=== PATIENT | male | born 1935 | race Caucasian/White ===

== ENCOUNTER 2016-03-08 09:15 | Inpatient (IN) | payer MEDICARE ==
--- NOTE | 2016-03-08 08:28 | HP ---
DATE OF CLINIC: 03/03/2016 CHRISTIANO SANDRA : 1935 PLANNED PROCEDURE: Right Knee Unicompartmental Arthroplasty with Possible Total Knee Arthroplasty DATE OF PROCEDURE: March 08, 2016 SURGEON: Dr. Carlos Paredes PCP: Dr. Kameron Mcbride HISTORY OF PRESENT ILLNESS Christiano Sandra is an 80 year old male. * Medication list reviewed with patient allergy list reviewed with patient. 80-year-old male known to me in the past for a left knee medial unicompartmental arthroplasty over 6 years ago from which he has done well. Most recently has seen Kg for evaluation of chronic left knee pain and then with me for a consultation regarding this problem. It has been most limiting for him with noticing more of a "bow leg". He is also having more medial discomfort. This is primarily weight-bearing related, non-radicular, and he has minimal rest discomfort. He denies hip pain. He does get some intermittent swelling. He has had multi-level lumbar laminectomy at L2-3 and L4-5, per patient, done by Dr. Mendez. He continues to notice some weakness of right ankle dorsiflexion and some distal numbness. In addition, he has had some sensitivity of the right thigh anteriorly. He is interested in consideration of definitive management options. We discussed both operative and non-operative management and he has elected to proceed with surgery (UKA vs TKA)and presents today preoperatively. 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 He also has hypertension and a chronic peripheral neuropathy bilaterally. CURRENT MEDICATION * *Supplement Miscellaneous 1 once a day omega 3-fatty acids 1000mg, vitamin B-1 100mg, vitamin D3 2000mg, 0 days, 0 refills * Alpha-Lipoic Acid 100 MG Tablet 2 once a day 0 days, 0 refills * Aspirin 325 MG Tablet 1 once a day 0 days, 0 refills * B Complex Tablet 1 once a day 0 days, 0 refills * BuPROPion HCl ER (XL) 150 MG Tablet Extended Release 24 Hour 1 once a day 0 days, 0 refills * Citalopram Hydrobromide 40 MG Tablet 1 once a day 0 days, 0 refills * Cyanocobalamin 1000 MCG/ML Solution once a week 0 days, 0 refills * Excedrin Tension Headache 500-65 MG Tablet as needed 0 days, 0 refills * Gabapentin 300 MG Capsule as directed 2 caps 3 times a day, 0 days, 0 refills * LevOCARNitine 330 MG Tablet 1 once a day 0 days, 0 refills * Losartan Potassium 50 MG Tablet 1 once a day 0 days, 0 refills * Multi-Vitamin Tablet 1 once a day 0 days, 0 refills * Nitrostat 0.4 MG Tablet Sublingual as needed 0 days, 0 refills * Pantoprazole Sodium 40 MG Tablet Delayed Release 1 once a day 0 days, 0 refills PAST MEDICAL/SURGICAL HISTORY Reported: Medical: Arthritis, 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 Surgical / Procedural: Surgical / procedural history prostate skin Low Back sx 05/07 Hernia x 2 Gallbladder Prostate sx, replacement of a knee Left knee replaced 09/08/[address] Paredes, Cholecystectomy, Eye Surgery cataract Right eye, Hysterectomy, Hernia repair 2 times, Prostate Surgery seed implants, and Back Surgery laminectomy 2 times. Diagnoses: Thyroid disorder Sleep apnea. SOCIAL HISTORY Behavioral: Quit smoking 1953. Smoking status: Former smoker. 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 ALLERGIES * Ambien * Aspirin Reaction: stomachache * Cyclobenzaprine HCl * Diphenhydramine FAMILY HISTORY Heart disease mother and sibling Blood pressure mother and sibling Thyroid disease mother and sibling Stroke syndrome sibling REVIEW OF SYSTEMS Systemic: No fever and no recent weight change. Head: No head symptoms. Cardiovascular: No cardiovascular symptoms. Pulmonary: No pulmonary symptoms. Gastrointestinal: No gastrointestinal symptoms. Psychological: No psychological symptoms. Skin: No skin lesions and no rash. PHYSICAL FINDINGS * Vitals taken 03/03/2016 01:12 pm BP-Sitting L 141/92 mmHg 100 - 120/60 - 80 BP Cuff Size Regular Pulse Rate-Sitting 72 bpm 50 - 100 Respiration Rate 16 per min 18 - 26 Temp-Oral 98.1 F 96 - 101 Height 71.75 in 64 - 74 Weight 180 lbs 120 - 198 Body Mass Index 24.6 kg/m2 Body Surface Area 2.03 m2 Pain Level 1 Ears, Nose, Throat: * ENT: normal. Lungs: * Clear to auscultation. Cardiovascular: Heart Rate And Rhythm: * Normal. Abdomen: * Normal. Neurological: Motor: * Dominant Hand = Right Hand. Patient is a well-developed, well-nourished male in no acute distress, normal-appearing mood and affect. He has a stiff-legged gait. Right knee is in genu varum. This is correctable to near neutral. Right knee exam shows he is tender medial greater than lateral, fairly diffuse. Skin integrity is well-preserved, no wounds, rashes or lesions. Mild swelling, no gross effusion. Motion is 3-130 degrees. No pain with patellar manipulation. Ligamentous exam is intact for cruciates and collaterals. NT over the anteromedial proximal tibia. Calf is soft and NT. Distal light touch sensation has some mild stocking glove paraesthesias, but symmetric with the contralateral side. Motor function is grossly intact and symmetric. Pulses are palpable. Gentle rotation of the hip is non-irritable. Left knee shows a well-healed anterior incision, good joint play and alignment. No swelling or effusion. Motion is 0-135 degrees. TESTS Outside radiographs from 08/21/15 of the right knee show significant medial compartment narrowing with periarticular sclerosis and varus deformity. Lateral compartment is relatively well preserved. There is superior and inferior spurring at the patellofemoral articulation. Merchant views show some marginal degenerative changes, but comparable to the contralateral side. ASSESSMENT DJD, right knee, involving primarily the medial compartment with less significant involvement of the patellofemoral joint. Over 6 years post left medial unicompartmental arthroplasty, clinically and radiographically doing well. PREVIOUS TESTS * Test: CBC WITH DIFF Report Date: 02/25/2016 WBC 6.3 10*3/mL MCV 96.5 fL High RBC 4.29 10*6/uL Low NEUTROPHILS 67.5 % MCH 32.2 pg High MCHC 33.3 g/dL RDW 14.6 % High PLATELET COUNT 196 10*3/mL IMM NEUT % 0.5 % IMM NEUT # 0.0 10*3/mL MONOCYTES 10.7 % BASOPHIL 0.3 % EOSINOPHIL 3.5 % High HCT 41.4 % HGB 13.8 g/L Low LYMPHOCYTE 17.5 % ANC 4.3 10*3/mL * Test: URINALYSIS WITH MICROSCOPIC Report Date: 02/25/2016 EPITHELIAL CELL 0 WBC NEG GLUCOSE NEGATIVE BACTERIA FEW PH,URINE 5.0 SPEC. GRAVITY 1.025 KETONE NEGATIVE NITRITE NEGATIVE RBC 0-1 BLOOD TRACE BILIRUBIN NEGATIVE APPEARANCE CLEAR PROTEIN 2+ COLOR YELLOW LEUK ESTERASE NEGATIVE UROBILINOGEN NORMAL * Test: PROTHROMBIN TIME Report Date: 02/25/2016 PROTIME 9.9 s INR 0.94 * Test: PARTIAL THROMBOPLASTIN TIME Report Date: 02/25/2016 APTT 26.0 s * Test: COMPREHENSIVE METABOLIC PANEL Report Date: 02/25/2016 ALT/SGPT 26 U/L ALBUMIN 3.8 g/dL ALB/GLOB RATIO 1.2 BUN 27 mg/dL High BUN/CREAT RATIO 18 CALCIUM 9.0 mg/dL GLUCOSE 121 mg/dL High CREATININE 1.5 mg/dL High SODIUM 139 meq/L POTASSIUM 4.5 meq/L CHLORIDE 103 meq/L CARBON DIOXIDE 32 meq/L High ANION GAP 9 meq/L TOT PROTEIN 7.0 g/dL GLOBULIN 3.2 g/dL BILI,TOTAL 0.4 mg/dL AST/SGOT 29 U/L ALK PHOSPHATASE 90 U/L GFR 45 Low * Test: MRSA SCREEN Report Date: 02/26/2016 MRSA SCREEN NEGATIVE * Test: MSSA SCREEN Report Date: 02/26/2016 MSSA SCREEN POSITIVE FOR STAPHYLOCOCCUS AUREUS Abnormal THERAPY * Patient fall risk screen positive. * Patient eligible for fall risk assessment. * Patient received fall risk assessment. PLAN * OTHER OxyCODONE HCl 5 MG TABS, 1or 2 tablets every 4 to 6 hours as needed-TO BE USED FOR AFTER SURGERY, 5 days, 0 refills Mupirocin 2 % OINT, apply into each nostril two times a day (morning & night) for 5 days prior to surgery date. NEED TO START ON Mar 03, 2016, 5 days, 0 refills * Knee replacement -partial, on the right with possible total knee arthroplasty Discussed with patient in detail the limitations, expectations as well as risks and possible complications of surgery including, but not limited to wound problems or infection, neurovascular injury, continued knee pain or dysfunction, including the possibility of prosthetic wear or failure over time that may require additional operative or nonoperative treatment. Patient also realizes the perioperative risks including risks associated with anesthesia and would like to proceed. A full PAR conference was held, questions and concerns addressed and informed consent was obtained. Patient will be sent from my office for completion of the preoperative workup. Patient will enteric coated aspirin postoperatively for DVT prophylaxis as per risk stratification protocol.use Patient would like to perform their postop PT at [facility] if possible with transition back to [facility] when independent with total knee arthroplasty protocol. He does live alone. CARE TEAM Ashit Mckenzie, MD Cardiovascular Disease Kameron Mcbride MD [facility]/sg
[~2016-03-08 09:15] MED LIST: BUPIVACAINE 0.25% (MDV) 20 ML in SODIUM CHLORIDE 0.9% FLUSH 20 ML IF PRN; BUPIVACAINE 0.25% (MDV) 24 ML, MORPHINE SULFATE 8 MG, EPINEPHRINE 0.3 MG in SODIUM CHLO... IF PRN; CEFAZOLIN SODIUM 2 GRAM PREMIX 100 ML IV PRN; CELECOXIB 200 MG CAPSULE PO ONE; CLONIDINE HCL 0.1 MG/24 HR (7 DAY PATCH) TD SCH; FAMOTIDINE 20 MG TABLET PO ONE; GABAPENTIN 600 MG TABLET PO ONE; ONDANSETRON 4 MG/2ML 2 ML VIAL IV ONE; OXYCODONE HCL 10 MG TAB.SR PO ONE; POLYMYXIN B SULFATE 500,000 UNITS, BACITRACIN 25,000 UNITS in SODIUM CHLORIDE 3 L IRRIG... IR PRN; TRAMADOL HCL 50 MG TABLET PO ONE; TRANEXAMIC ACID 1,000 MG in SODIUM CHLORIDE 0.9% 100 ML IV PRN
[2016-03-08] MEDS ORDERED: IV START KIT ONE (09:21)
[2016-03-08] MEDS ORDERED: LACTATED RINGERS 1,000 ML ONE (09:21)
[2016-03-08] MEDS ORDERED: FENTANYL 100 MCG/2 ML VIAL ONE (10:32)
[2016-03-08] MEDS ORDERED: MIDAZOLAM HCL 5 MG/5 ML VIAL ONE ×4 (10:32→12:43)
[2016-03-08] MEDS ORDERED: ROPIVACAINE 0.5% 30 ML VIAL ONE (10:33)
[2016-03-08] MEDS ORDERED: NERVE BLOCK PROCEDURAL TRAY 1 EACH ONE (10:33)
[2016-03-08] MEDS ORDERED: ONDANSETRON 4 MG/2ML 2 ML VIAL ONE (10:38)
[2016-03-08] MEDS ORDERED: FAMOTIDINE 20 MG TABLET ONE (10:38)
[2016-03-08] MEDS ORDERED: OXYCODONE HCL 10 MG TAB.SR PO ONE (10:38)
[2016-03-08] MEDS ORDERED: TRAMADOL HCL 50 MG TABLET ONE (10:38)
[2016-03-08] MEDS ORDERED: CELECOXIB 200 MG CAPSULE ONE (10:39)
[2016-03-08] MEDS ORDERED: CLONIDINE HCL 0.1 MG/24 HR (7 DAY PATCH) TD ONE (10:39)
[2016-03-08] MEDS ORDERED: GABAPENTIN 600 MG TABLET ONE (10:39)
[2016-03-08] MEDS ORDERED: METHYLENE BLUE 1% 1ML VIAL ONE (11:00)
[2016-03-08] MEDS ORDERED: ATROPINE SULFATE 0.4 MG/1 ML VIAL IV PRN (11:47)
[2016-03-08] MEDS ORDERED: LABETALOL HCL 5 MG/ML 20ML VIAL IV PRN (11:47)
[2016-03-08] MEDS ORDERED: ON-Q PUMP/ROPIVACAINE 0.2% 400 ML in PREMIX BAG 1 EACH NB PRN (11:47)
[2016-03-08] MEDS ORDERED: PROMETHAZINE HCL 25 MG/ML VIAL IM PRN (11:47)
[2016-03-08] MEDS ORDERED: NALOXONE HCL 0.4 MG/ML VIAL IV PRN (11:47)
[2016-03-08] MEDS ORDERED: ONDANSETRON 4 MG/2ML 2 ML VIAL IV PRN ×2 (11:47→14:58)
[2016-03-08] MEDS ORDERED: MORPHINE SULFATE 4 MG/ML SYRINGE IV PRN (11:47)
[2016-03-08] MEDS ORDERED: MEPERIDINE 25 MG/ML SYRINGE IV PRN (11:47)
[2016-03-08] MEDS ORDERED: LACTATED RINGERS 1,000 ML IV SCH (12:00)
[2016-03-08] MEDS ORDERED: BUPIVACAINE 0.75% SPINAL AMPUL 2 ML ONE (13:18)
[2016-03-08] MEDS ORDERED: SPINAL PROCEDURAL TRAY 1 EACH ONE (13:18)
[2016-03-08] MEDS ORDERED: MORPHINE SULFATE 10 MG/ML SYRINGE ONE (13:18)
[2016-03-08] MEDS ORDERED: ON-Q PUMP/ROPIVACAINE 0.2% 450 ML ONE (13:49)
--- NOTE | 2016-03-08 14:14 | PCMBPN ---
Brief Post Op Note: Date of Procedure: 03/08/16 Preoperative Diagnosis: DJD right knee Postoperative Diagnosis: 1. [Same] Procedure: right UKA Surgeon: Carlos Paredes MD Assist: Tiara (АННА) Anesthesia: spinal/add block (Maninder) Condition: stable to PAR Complications: none IV Fluids: 2000 mLs of LR Urine Output: 125 mLs Estimated Blood Loss: 50 mLs Tourniquet Time: ~70 minutes Specimens: [N/A] Implants:ZUK Drains: none
[2016-03-08 14:29] VITALS: BMI 23.9
[2016-03-08] MEDS ORDERED: KETOROLAC TROMETHAMINE 30 MG/ML 1 ML VIAL IV PRN (14:58)
[2016-03-08] MEDS ORDERED: HYDROMORPHONE HCL 0.5 MG/0.5 ML SYRINGE IV PRN (14:58)
[2016-03-08] MEDS ORDERED: CEFAZOLIN SODIUM 1 GRAM PREMIX 1 G in Premix (D5W) 50 ml 1 EACH IV SCH (14:58)
[2016-03-08] MEDS ORDERED: CALCIUM CARBONATE 500 MG TAB.CHEW PO PRN (14:58)
--- NOTE | 2016-03-08 15:02 | RAD ---
Exam: Two-view right knee COMPARISON: 10/29/2010 INDICATION: Postop knee. Findings: AP and crosstable lateral views of the right knee were obtained. There has been unicompartment arthroplasty within the medial compartment of the right knee. Alignment has improved. No pericomponent fracture is identified. Intra-articular and subcutaneous gas is noted as expected. Vascular calcifications are noted. IMPRESSION: Expected postoperative appearance following unicompartmental arthroplasty in the medial compartment of the right knee.
[2016-03-08] MEDS: D5 1/2NS with 20 mEq KCL 1,000 ML IV SCH ×2 (15:50→19:49)
[2016-03-08] MEDS: ACETAMINOPHEN 500 MG TABLET PO SCH ×2 (15:50→20:10)
[2016-03-08] MEDS ORDERED: NITROGLYCERIN 0.4 MG/TAB.SUBL BOT SL PRN (19:33)
[2016-03-08] MEDS ORDERED: PUMP TUBING ONE (19:37)
[2016-03-08] MEDS: CEFAZOLIN SODIUM 1 GRAM PREMIX 1 G in Premix (D5W) 50 ml 1 EACH IV SCH (19:49)
[2016-03-08] MEDS: GABAPENTIN 300 MG CAPSULE PO SCH (20:11)
[2016-03-08] MEDS: DOCUSATE SODIUM 100 MG CAPSULE PO SCH (20:11)
[2016-03-08] MEDS: ASCORBIC ACID 500 MG TABLET PO SCH (20:11)
--- NOTE | 2016-03-08 20:51 | CONS ---
CHERYL BACK [id number] HOSPITALIST CONSULATION DATE OF ADMISSION: March 08, 2016 DATE OF CONSULTATION: March 08, 2016 PHYSICIAN REQUESTING CONSULTATION: Carlos Paredes M.D. REASON FOR CONSULTATION: Assistance in the perioperative management of the patient's medical problems. These medical problems include coronary artery disease with a stent in the left anterior descending artery placed in 2011 without angina involving the [place] vessels, chronic essential hypertension, chronic depression, obstructive sleep apnea on CPAP therapy, history of mitochondrial myopathy with generalized weakness, gastroesophageal reflux disease, chronic stage 3 kidney disease with a baseline creatinine around 1.5. PROCEDURES PERFORMED DURING THE HOSPITALIZATION: A right unipolar knee arthroplasty performed by Dr. Paredes earlier today under spinal anesthesia without immediate perioperative complications. SUMMARY OF ADMISSION AND HOSPITAL COURSE: The patient is an 80-year-old male with medical problems as listed above who was admitted for an elective right unipolar knee arthroplasty as mentioned above. PREOPERATIVE REVIEW OF SYSTEMS: Is negative for any recent problems with fevers or chills. He denies any recent upper respiratory symptoms, cough, chest pain, shortness of breath, palpitations, edema, nausea, vomiting, constipation or abdominal pain. He denies any headache, fainting, blackouts or seizures. No urinary complaints. No recent falls. PAST MEDICAL HISTORY: 1. Negative for any recent hospitalizations. 2. He has a history of coronary artery disease followed by Dr. Mckenzie. He has no angina symptoms. He had a stent placed in 2011 after a small myocardial infarction. It is unclear what preoperative cardiac evaluation the patient had. Those records are not available for my review. 3. He has a history of chronic essential hypertension, stable on medications. 4. He has a history of obstructive sleep apnea on CPAP therapy. Unfortunately he did not bring his CPAP machine in with him today. 5. He has a history of peripheral neuropathy followed by Dr. Jack Eric as well as a mitochondrial myopathy also followed by Dr. Eric. 6. He has had some gastroesophageal reflux disease, stable on medications. 7. Chronic depression, stable on medications. 8. He has a remote history of prostate cancer believed to be in remission. PAST SURGICAL HISTORY: Significant for: 1. Lumbar laminectomy at multiple levels. The last surgery was in March,. He is followed by Dr. Mendez for his back problems. 2. He has had prior back surgeries as well. 3. He has had a stent placed in the left anterior descending artery in [address] Mckenzie. 4. He has had a prior cholecystectomy. 5. Two previous hernia surgeries. 6. Prostatectomy. 7. He had a left knee replacement performed by Dr. Paredes here in August of 2009 without complications. ALLERGIES: He has several allergies documented in the medical record includin. CHLORAMPHENICOL. 2. CLARITHROMYCIN. 3. CLINDAMYCIN. 4. ERYTHROMYCIN. 5. TETRACYCLINE. 6. Most of these medications are contraindicated with his myopathy. CURRENT MEDICATIONS: Consist of: 1. Nitroglycerin 0.4 mg sublingual every five minutes as needed for chest pain. 2. Vitamin D3 2000 units orally daily. 3. Vitamin B complex one pill twice daily. 4. Thiamine supplement 100 mg daily. 5. Protonix 40 mg daily. 6. Carlton 3 fatty acids 1000 mg daily. 7. Multivitamin once daily. 8. Levocarnitine 330 mg daily. 9. Neurontin 600 mg twice daily. 10. Vitamin B12 1000 mcg subcutaneous every week. 11. Creatine supplement 2500 mg daily. 12. Celexa 40 mg daily. 13. Wellbutrin SR 150 mg daily. 14. Enteric coated aspirin 325 mg daily. 15. Amlodipine 5 mg daily. 16. Alpha lipoic acid 100 mg twice daily. 17. Excedrin tension headache tablets daily as needed for headaches. FAMILY HISTORY: Significant for a mother who of a cerebral hemorrhage. His father of complications of emphysema. SOCIAL HISTORY: He is currently and lives alone. He quit smoking in 1954 after smoking only one year. He does not drink alcohol and denies drug use. He has two sons and one named Rigoberto lives locally. He lives in [facility]. 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 His primary care provider is Dr. Kameron Mcbride. PHYSICAL EXAMINATION: VITAL SIGNS: His vital signs showed pulse 61, blood pressure 131/79, respirations 20, oxygen saturations are 99% on two liters but drop down into the 80s when sleeping. Body mass index is 23.9. Weight is 80 kilograms. GENERAL: This is a well developed, well nourished male in no acute distress. HEENT: Is unremarkable. CHEST: Clear to auscultation bilaterally. HEART: Regular rate and rhythm without a murmur. ABDOMEN: Soft, nontender, nondistended with positive bowel sounds. EXTREMITIES: Showed no peripheral edema. He has a surgical dressing over the right knee. NEUROLOGIC: Exam is nonfocal. PREOPERATIVE LABORATORY STUDIES: Included a CBC done on February 25, 2016 showing a white count of 6.3, hemoglobin of 13.8, and a platelet count of 196,000. Coagulation profile was normal. Chemistry profile showed a sodium 139, potassium 4.5, carbon dioxide 32, creatinine 1.5, glucose 121, normal liver functions on February 18, 2016. Urinalysis performed at that was fairly unremarkable. DIAGNOSTIC IMAGING: He had a preoperative chest x-ray in January showing no active intrathoracic disease. ELECTROCARDIOGRAM: I do not have any preoperative electrocardiograms available for review. ASSESSMENT/PLAN: 1. The patient is status post right unipolar knee arthroplasty. We will defer to orthopedic service for perioperative management of this problem. He will be receiving aspirin for venous thrombosis prophylaxis along with mechanical measures. 2. Patient has a history of coronary artery disease which appears to be stable. We will try to get records from [facility] in the morning. 3. He has chronic essential hypertension controlled with medications. We will write parameters for his Norvasc. Interestingly, he is not on a beta andre therapy but just takes Norvasc for hypertension. He is also not on any statin therapy. We will defer to his outpatient providers for management of his lipids. 4. He has a history of chronic depression stable on Celexa and Wellbutrin. We will continue these. 5. He has a history of obstructive sleep apnea managed with CPAP. Unfortunately, he did not bring his machine in. I am going to try to get his family or friends or somebody to bring it in tomorrow. In the meantime he will just get oxygen supplemental therapy. 6. He has a history of mitochondrial myopathy treated with supplements. He will have to provide these if he wants to continue those in the hospital. I have written orders that he can use his own medications if desired. 7. He has some chronic gastroesophageal reflux disease and will continue with proton pump inhibitor therapy in the form of Protonix. 8. He has elevated creatinine presumably due to chronic stage 3 kidney disease, but I do not have any recent prior laboratory results from his primary care provider's office. 9. The hospitalist service will follow the patient in the perioperative period. At discharge he will return to the care of his primary care provider, Dr. Mcbride. 10. He plans to go to a [facility] facility for rehabilitation which seems appropriate given his lack of social support at home. 11. Further treatment and recommendations will depend on his hospital course. cc: Carlos Paredes M.D. Kameron Mcbride M.D.
[2016-03-08] MEDS ORDERED: ALPHA LIPOIC ACID 100 MG PO SCH (21:00)
[2016-03-09] MEDS: D5 1/2NS with 20 mEq KCL 1,000 ML IV SCH ×2 (02:15→08:39)
[2016-03-09] MEDS: ACETAMINOPHEN 500 MG TABLET PO SCH ×5 (03:08→21:00)
[2016-03-09] MEDS: CEFAZOLIN SODIUM 1 GRAM PREMIX 1 G in Premix (D5W) 50 ml 1 EACH IV SCH (03:40)
[2016-03-09 05:59] LABS: HEMATOCRIT 34.7 % (32.0-52.0); HEMOGLOBIN 11.4 gm/l (14.0-18.0); MEAN CORPUSCULAR HEMOGLOBIN 32.2 pg (27.0-31.0); MEAN CORPUSCULAR HGB CONC 32.9 g/dl (33.0-37.0); RED CELL DISTRIBUTION WIDTH 14.6 % (11.5-14.5)
--- NOTE | 2016-03-09 08:41 | PDOC43 ---
- Subjective Findings: Pt seen this morning up a eating the rest of his breakfast. He reports little pain and is ready to start PT. Subjective: Reports Flatus, Reports Pain Tolerable, Denies Chest Pain, Denies Shortness of Breath, Denies Nausea, Denies Vomiting, Denies Fever - Objective Vital Signs Temperature 97.8 F 03/09/16 07:45 Pulse Rate 60 03/09/16 07:51 Respiratory Rate 16 03/09/16 07:45 Blood Pressure 120/71 03/09/16 07:45 O2 Saturation by Pulse Oximetry 85 03/09/16 07:51 Oxygen Delivery Method Room Air Oxygen Flow Rate 0 Laboratory 03/09/16 05:30 03/09/16 05:30 03/09/16 05:30 RBC 3.54 L MCV 98.0 H MCH 32.2 H MCHC 32.9 L RDW 14.6 H Anion Gap 6 L Estimated GFR 49 L Calcium 8.0 L Active Medication Orders Category Date Time Status Acetaminophen [Tylenol] Med 03/08/16 14:58 Active 1,000 mg PO Q6H Amlodipine Besylate [Norvasc] Med 03/09/16 09:00 Active 5 mg PO DAILY Ascorbic Acid [Vitamin C] Med 03/08/16 21:00 Active 500 mg PO BID Aspirin (Enteric Coated) [Ecotrin] Med 03/09/16 09:00 Active 325 mg PO DAILY Aspirin (Enteric Coated) [Ecotrin] Med 03/09/16 09:00 Active 325 mg PO DAILY Bisacodyl [Dulcolax] Med 03/11/16 14:16 Active 10 mg [place] DAILY PRN Bupropion HCl [Wellbutrin Sr] Med 03/09/16 09:00 Active 150 mg PO DAILY Calcium Carbonate [Tums] Med 03/08/16 14:58 Active 1,000 - 2,000 mg PO Q2H PRN Citalopram Hydrobromide [Celexa] Med 03/09/16 09:00 Active 40 mg PO DAILY D5 1/2NS with 20 mEq KCL [D51/2NS with 20 mEq KCL] 1, Med 03/08/16 14:58 Active 000 ml IV 125 mls/hr Docusate Sodium [Colace] Med 03/08/16 21:00 Active 100 mg PO BID Gabapentin [Neurontin] Med 03/08/16 21:00 Active 600 mg PO BID Hydromorphone HCl [Dilaudid] Med 03/08/16 14:58 Active 0.5 mg IV Q1H PRN Ketorolac Tromethamine [Toradol] Med 03/08/16 14:58 Active 30 mg IV Q6H PRN Magnesium Hydroxide [Milk of Magnesia] Med 03/09/16 14:16 Active 30 ml PO DAILY PRN Multivitamins [One-A-Day] Med 03/09/16 09:00 Active 1 tab PO DAILY Nitroglycerin [Nitrostat] Med 03/08/16 19:33 Active 0.4 mg SL Q5M PRN Ondansetron 4 mg/2ml Vial [Zofran] Med 03/08/16 14:58 Active 4 - 6 mg IV Q6H PRN Oxycodone HCl [Roxicodone] Med 03/08/16 14:58 Active 5 - 10 mg PO Q4H PRN Pantoprazole Sodium [Protonix] Med 03/09/16 09:00 Active 40 mg PO DAILY Remove Patch Med 03/09/16 10:00 Once 1 each TD X1 ONE Sodium Chloride 0.9% Flush [Normal Saline 10ml Flush] Med 03/08/16 14:58 Active 10 - 50 ml IV PRN PRN Sodium Chloride 0.9% Flush [Normal Saline 10ml Flush] Med 03/09/16 01:00 Active 10 ml IV Q8HR Intake and Output 03/07/16 03/08/16 03/09/16 23:59 23:59 23:59 Intake Total 2500 500 Output Total 675 325 Balance 1825 175 General: Afebrile HEENT: Atraumatic Lungs: Normal Air Movement Abdomen: Soft, Non-Distended Skin: Normal Color Neurological: Alert, Oriented x 4 Psych/Mental Status: Normal Affect - Right Lower Extremity Motor: Extensor Hallucis Longus: 5/5, Tibialis Anterior: 5/5, Gastrocnemius: 5/5 , Peroneals: 5/5, Quadriceps: 3/5 Gross Sensation to Light Touch: Present: Deep Peroneal Nerve Motion: Calf soft NT Knee Rom 0-80 Ind SLR - Problems (1) Status post right unicompartmental knee replacement Status: Acute Assessment/Plan: Pod#1 1. Physical Therapy:Mobilize with PT/OT, Encouraged bed exercise 2. Pain Control: Per protocol and nerve cath. Nerve cath turned down to 6ml/hr 3. DVT Prophylaxis: ASA, foot pumps and mobility 4. Disposition:Doing well 5. Medical Issues:Management per hospitalist. Appreciatte the care and consult. Hypoxemia secondary to meds and lack of CPAP during the night. He will need this for D/C to SNF Possible D/C to SNF today if meets criteria
[2016-03-09] MEDS ORDERED: CREATINE PO SCH (09:00)
[2016-03-09] MEDS ORDERED: GABAPENTIN 300 MG CAPSULE PO SCH (09:00)
[2016-03-09] MEDS ORDERED: REMOVE PATCH 1 EACH UNIT TD SCH (09:00)
[2016-03-09] MEDS ORDERED: ASPIRIN (ENTERIC COATED) 325 MG TABLET.EC PO SCH (09:00)
[2016-03-09] MEDS: PANTOPRAZOLE 40 MG TABLET DR PO SCH (09:19)
[2016-03-09] MEDS: ASPIRIN (ENTERIC COATED) 325 MG TABLET.EC PO SCH (09:19)
[2016-03-09] MEDS: CITALOPRAM HYDROBROMIDE 20 MG TABLET PO SCH (09:19)
[2016-03-09] MEDS: MULTIVITAMINS 1 TAB TABLET PO SCH (09:19)
[2016-03-09] MEDS: AMLODIPINE BESYLATE 5 MG TABLET PO SCH (09:21)
[2016-03-09] MEDS: ASCORBIC ACID 500 MG TABLET PO SCH ×2 (09:22→21:00)
[2016-03-09] MEDS: BUPROPION HCL 150 MG SR TABLET PO SCH (09:22)
[2016-03-09] MEDS: DOCUSATE SODIUM 100 MG CAPSULE PO SCH ×2 (09:24→21:00)
[2016-03-09] MEDS ORDERED: REMOVE PATCH 1 EACH UNIT TD ONE (10:00)
[2016-03-09] MEDS: GABAPENTIN 300 MG CAPSULE PO SCH (10:11)
--- NOTE | 2016-03-09 10:52 | PDOC43 ---
- Subjective Chief Complaint: Right unipolar arthroplasty Patient awake and alert without complaints. There is no knee pain, he has been out of bed with assistance. Denies lightheadedness, chest pain, shortness of breath. He may have someone be able to pick-up his CPAP this afternoon. Subjective: Reports Pain Tolerable, Reports Tolerating Diet Well, Reports Adequate Oral Intake, Reports Urinating Without Difficulty, Denies Bowel Movement, Denies Shortness of Breath, Denies Cough, Denies Chest Pain, Denies Abdominal Pain, Denies Nausea, Denies Vomiting - Objective Vital Signs Temperature 97.8 F 03/09/16 07:45 Pulse Rate 60 03/09/16 07:51 Respiratory Rate 16 03/09/16 07:45 Blood Pressure 120/71 03/09/16 07:45 O2 Saturation by Pulse Oximetry 85 03/09/16 07:51 Oxygen Delivery Method Room Air Oxygen Flow Rate 0 Intake and Output 03/07/16 03/08/16 03/09/16 23:59 23:59 23:59 Intake Total 2500 500 Output Total 675 325 Balance 1825 175 General: Alert, Oriented x3, Cooperative, No Acute Distress HEENT: Atraumatic, PERRLA, EOMI, Mucous membr. moist/pink Lungs: Clear to Auscultation Bilaterally, Normal Air Movement (no crackle or wheeae) Cardiovascular: Regular Rate and Rhythm, Normal S1, Normal S2, No Other Abdomen: Soft, Non-Distended, No Rigid, No Rebounding Extremities: No Cyanosis, No Edema, No Tenderness Peripheral Pulses: Radial (L): 2+, Radial (R): 2+ Neurological: Normal Speech Psych/Mental Status: Normal Mood Laboratory 03/09/16 05:30 03/09/16 05:30 03/09/16 05:30 RBC 3.54 L MCV 98.0 H MCH 32.2 H MCHC 32.9 L RDW 14.6 H Anion Gap 6 L Estimated GFR 49 L Calcium 8.0 L Current Medications: Current meds reviewed in EMR. - Problems: Assessment/Plan (1) Status post right unicompartmental knee replacement Status: Acute Assessment/Plan: Management per orthopedic recommendations (2) CAD (coronary artery disease), [place] coronary artery Qualifiers: [place] vs. transplanted heart: [place] heart Associated angina: without angina Qualifier Code: (I25.10) Atherosclerotic heart disease of [place] coronary artery without angina pectoris Status: Chronic Assessment/Plan: stable (3) Hypertension Qualifiers: Hypertension type: essential hypertension Qualifier Code: (I10) Essential (primary) hypertension Status: Chronic Assessment/Plan: Stable, continue home medications (4) Depression Qualifiers: Depression Type: dysthymia Qualifier Code: (F34.1) Dysthymic disorder Status: Chronic Assessment/Plan: Stable, continue home medications (5) KARMEN on CPAP Status: Chronic Assessment/Plan: Patient currently without his CPAP and required oxygen use overnight. 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 Continue supplements to prevent exacerbation (7) GERD without esophagitis Status: Chronic Assessment/Plan: Continue home medications (8) CKD (chronic kidney disease), stage III Status: Chronic Assessment/Plan: Presumed but prior history unavailable, present on pre-op labs. Stable
[2016-03-09] MEDS ORDERED: MAGNESIUM HYDROXIDE 30 ML UDCUP PO PRN (14:16)
[2016-03-09] MEDS: OXYCODONE HCL 5 MG TABLET PO PRN (18:03)
[2016-03-09] MEDS: GABAPENTIN 600 MG TABLET PO SCH (21:00)
[2016-03-10] MEDS: ACETAMINOPHEN 500 MG TABLET PO SCH ×2 (02:40→08:33)
[2016-03-10] MEDS: OXYCODONE HCL 5 MG TABLET PO PRN ×2 (02:40→08:41)
[2016-03-10 06:21] LABS: HEMOGLOBIN 11.7 gm/l (14.0-18.0)
[2016-03-10] MEDS: CITALOPRAM HYDROBROMIDE 20 MG TABLET PO SCH (08:30)
[2016-03-10] MEDS: BUPROPION HCL 150 MG SR TABLET PO SCH (08:32)
[2016-03-10] MEDS: AMLODIPINE BESYLATE 5 MG TABLET PO SCH (08:32)
[2016-03-10] MEDS: DOCUSATE SODIUM 100 MG CAPSULE PO SCH (08:33)
[2016-03-10] MEDS: ASPIRIN (ENTERIC COATED) 325 MG TABLET.EC PO SCH (08:33)
[2016-03-10] MEDS: PANTOPRAZOLE 40 MG TABLET DR PO SCH (08:33)
[2016-03-10] MEDS: GABAPENTIN 600 MG TABLET PO SCH (08:33)
[2016-03-10] MEDS: MULTIVITAMINS 1 TAB TABLET PO SCH (08:34)
[2016-03-10] MEDS: ASCORBIC ACID 500 MG TABLET PO SCH (08:34)
--- NOTE | 2016-03-10 09:06 | PDOC43 ---
- Subjective Findings: Ortho POD 2 R UKA Patient awake, A and O times 4 this am and in good spirits. No present c/o. Denies CP/SOB/NV. Taking a regular diet and positive flatus. Good progress with ambulatory PT POD 1. Pain is well controlled, presently none. Aware of discharge planning for SNF. Wants to get his own ride arranged. - Objective Vital Signs Temperature 98.4 F 03/10/16 07:12 Pulse Rate 73 03/10/16 07:12 Respiratory Rate 17 03/10/16 07:12 Blood Pressure 137/78 03/10/16 07:12 O2 Saturation by Pulse Oximetry 93 03/10/16 07:26 Oxygen Delivery Method Nasal Cannula Oxygen Flow Rate 2 Laboratory 03/10/16 05:45 03/09/16 05:30 Active Medication Orders Category Date Time Status Acetaminophen [Tylenol] Med 03/08/16 14:58 Active 1,000 mg PO Q6H Amlodipine Besylate [Norvasc] Med 03/09/16 09:00 Active 5 mg PO DAILY Ascorbic Acid [Vitamin C] Med 03/08/16 21:00 Active 500 mg PO BID Aspirin (Enteric Coated) [Ecotrin] Med 03/09/16 09:00 Active 325 mg PO DAILY Bisacodyl [Dulcolax] Med 03/11/16 14:16 Active 10 mg IN DAILY PRN Bupropion HCl [Wellbutrin Sr] Med 03/09/16 09:00 Active 150 mg PO DAILY Calcium Carbonate [Tums] Med 03/08/16 14:58 Active 1,000 - 2,000 mg PO Q2H PRN Citalopram Hydrobromide [Celexa] Med 03/09/16 09:00 Active 40 mg PO DAILY Docusate Sodium [Colace] Med 03/08/16 21:00 Active 100 mg PO BID Gabapentin [Neurontin] Med 03/09/16 21:00 Active 600 mg PO BID Hydromorphone HCl [Dilaudid] Med 03/08/16 14:58 Active 0.5 mg IV Q1H PRN Magnesium Hydroxide [Milk of Magnesia] Med 03/09/16 14:16 Active 30 ml PO DAILY PRN Multivitamins [One-A-Day] Med 03/09/16 09:00 Active 1 tab PO DAILY Nitroglycerin [Nitrostat] Med 03/08/16 19:33 Active 0.4 mg SL Q5M PRN Ondansetron 4 mg/2ml Vial [Zofran] Med 03/08/16 14:58 Active 4 - 6 mg IV Q6H PRN Oxycodone HCl [Roxicodone] Med 03/08/16 14:58 Active 5 - 10 mg PO Q4H PRN Pantoprazole Sodium [Protonix] Med 03/09/16 09:00 Active 40 mg PO DAILY Sodium Chloride 0.9% Flush [Normal Saline 10ml Flush] Med 03/08/16 14:58 Active 10 - 50 ml IV PRN PRN Sodium Chloride 0.9% Flush [Normal Saline 10ml Flush] Med 03/09/16 01:00 Active 10 ml IV Q8HR Intake and Output 03/08/16 03/09/16 03/10/16 23:59 23:59 23:59 Intake Total 2500 1400 900 Output Total 163 446 8783 Balance 1825 1025 -400 Neurological: No Normal Gait (ambulating with a walker post R UKA) Peripheral Pulses: Right Posterior Tibialis: 1+, Right Dorsalis Pedis: 1+ - Left Lower Extremity Incision: Well Approximated (with a sub Q closure, skin glue and mesh. Thigh and calf are SNT.), No Dressing Saturated, No Shadow Drainage, No Drainage, No Erythema, No Rash Motor: Extensor Hallucis Longus: 3/5, Tibialis Anterior: 3/5, Gastrocnemius: 4/5 , Peroneals: 3/5, Quadriceps: 4/5 Gross Sensation to Light Touch: Present: Deep Peroneal Nerve, Superficial Peroneal Nerve, Medial Plantar Nerve, Lateral Plantar Nerve, Sural Nerve, Saphenous Nerve Motion: Knee flexion: AROM 0-50 with passive improvement, AA for SLR. Ankle: chronic weakness with DF, otherwise WNL. - Problems (1) Status post right unicompartmental knee replacement Status: Acute Assessment/Plan: Ortho POD 2 R UKA 1. Continue: Physical Therapy:Mobilize with PT/OT, Encouraged bed exercise 2. Continue: Pain Control: Per protocol and nerve cath. Nerve cath turned down to 6ml/hr 3. Continue: DVT Prophylaxis: ASA, foot pumps and mobility 4. Disposition:Doing well. Discharge planning: Continue for [facility]. Patient would like to transport with a friend if weather cooperates. 5. Medical Issues:Management per hospitalist. Appreciate the care and consult.
--- NOTE | 2016-03-10 09:59 | PDOC43 ---
- Subjective Chief Complaint: Right unipolar arthroplasty Subjective: Reports Pain Tolerable, Reports Tolerating Diet Well, Denies Shortness of Breath, Denies Fever - Objective Vital Signs Temperature 98.4 F 03/10/16 07:12 Pulse Rate 73 03/10/16 07:12 Respiratory Rate 03/10/16 07:12 Blood Pressure 137/78 03/10/16 07:12 O2 Saturation by Pulse Oximetry 93 03/10/16 07:26 Oxygen Delivery Method Nasal Cannula Oxygen Flow Rate 2 Intake and Output 03/09/16 03/10/16 03/11/16 06:59 06:59 06:59 Intake Total 3000 1800 Output Total 1000 850 500 Balance 2000 950 -500 General: Alert, Oriented x3, Cooperative, No Acute Distress HEENT: Mucous membr. moist/pink Lungs: Clear to Auscultation Bilaterally Cardiovascular: Regular Rate and Rhythm Abdomen: Soft, Normal Bowel Sounds, Non-Distended, No Tenderness Extremities: No Edema Skin: Warm, Dry, Intact Wound: Dressing Clean/Dry/Intact Laboratory 03/10/16 05:45 03/09/16 05:30 Current Medications: Current meds reviewed in EMR. - Problems: Assessment/Plan (1) Status post right unicompartmental knee replacement Status: Acute Assessment/Plan: Management per orthopedic recommendations (2) KARMEN on CPAP Status: Chronic Assessment/Plan: Patient currently without his CPAP and required oxygen use overnight. Home CPAP has been brought in for use at SNF. (3) CAD (coronary artery disease), [place] coronary artery Qualifiers: [place] vs. transplanted heart: [place] heart Associated angina: without angina Qualifier Code: (I25.10) Atherosclerotic heart disease of [place] coronary artery without angina pectoris Status: Chronic Assessment/Plan: stable (4) CKD (chronic kidney disease), stage III Status: Chronic Assessment/Plan: Presumed but prior history unavailable, present on pre-op labs. 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 Continue supplements to prevent exacerbation VTE Prophylaxis: [facility] measures plus aspirin Disposition: [facility] today
[2016-03-10 12:51] VITALS: BP 136/96
--- NOTE | 2016-03-11 09:43 | OP ---
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 POSTOPERATIVE DIAGNOSIS: SAME PROCEDURE: Right knee medial unicompartmental arthroplasty. COMPONENTS: ZUK size F cemented medial femoral component, size 4 cemented tibial base plate, 8mm articular insert. SURGEON: Carlos Paredes M.D. LAMINATE FLOOR INSTALLER: Tiara GABRIEL) ANESTHESIA: Spinal plus adductor nerve block per Maninder ESTIMATED BLOOD LOSS: 50 cc IV FLUID REPLACEMENT: per anesthesia, 2 liters crystalloid. URINE OUTPUT: 125 cc DRAINS: None TOURNIQUET TIME: Approximately 70 minutes COMPLICATIONS: None HISTORY: Briefly, patient is an 80-year-old male with clinical and radiographic evidence of advanced degenerative disease of the medial compartment of the right knee. Patient has failed traditional non-operative management and desire elective unicompartmental arthroplasty vs total knee arthroplasty. For additional details, please refer to the previously dictated Preoperative History and Physical Examination. A PAR conference was held, questions and concerns were addressed, and informed consent was obtained. FINDINGS: Significant medial compartment disease, fairly notable varus deformity both at the knee as well as in the tibia proximally. There were some minor changes in the patellofemoral articulation, no areas of full thickness loss. Lateral compartment was normal. PROCEDURE: The patient was taken to the operating room after the placement of a spinal anesthetic and regional nerve block. They were placed supine on the operating room table, a tourniquet was applied to the proximal thigh and the right lower extremity was prepped and draped out in the usual sterile fashion. Preoperative IV antibiotics were given empirically. Intraoperative DVT prophylaxis consisted of contralateral foot pumps. Personal filtration suits were used as was a closed room environment. At this point WHO timeout was taken. Surgical site was identified and confirmed. The leg was then elevated and the tourniquet inflated after gravity exsanguination. Tranexamic acid was infiltrated over 10 minutes prior to incision, 1 gram dose per protocol. A similar 2nd dose was given at initiation of closure. With the knee flexed, an anteromedial incision was made from the level of the tibial tubercle to the superior pole of the patella. A medial arthrotomy was performed. A medial subperiosteal proximal tibial release was performed and a portion of the anterior fat pad was excised to improve visualization. We evaluated the involvement of the patellofemoral compartment as well as the lateral compartment. We confirmed the ACL was intact. The anterior horn of the medial meniscus was excised. This was fairly deficient. There was somewhat hypertrophic fat pad that was partially debrided as noted above. Minimally invasive instrumentation and philosophy were used throughout the procedure in an attempt to decrease the extent of soft tissue disruption/damage. Initial attention was directed to the tibia. The external tibial alignment jig was placed. We confirmed alignment as well as resection level and made a proximal tibial cut with a sagittal and reciprocating saw. We removed medial marginal osteophytes. Attention was then directed to the femur. With the knee in extension we placed the 8mm linked spacer block and made a distal femoral cut. We then checked our extension gap. I felt this was still somewhat tight and then we therefore cut an additional 2mm off of the femur with a recut guide. We confirmed the size of the femur, placed the appropriate posterior and posterior chamfer cutting block. These cuts were made as was drilling of the femoral lugs. Residual marginal osteophytes were removed. We then confirmed flexion and extension gaps for balance. Tibia was then sized. We passed a small osteotome at the lateral border and placed our tibial trial. Tibial lugs were drilled and we trialed the entire construct obtaining full extension and smooth rollback. Satisfied, double antibiotic pulsatile lavage was used to irrigate the knee and clean the cancellous kevin interstices which were then carefully dried. Periarticular injection was done at this point per protocol of the posterior capsule, posteromedial knee and synovium. A single dose of high viscosity, methylene blue-stained, antibiotic impregnated polymethylmethacrylate was used to cement the tibial followed by femoral components. The knee was held in extension while the cement cured. All residual methacrylate was meticulously removed. Attention was then directed towards closure. Tranexamic acid was infiltrated over 10 minutes, dose per protocol. We irrigated and the retinaculum was closed with a running #2 absorbable StratoFix suture. A second periarticular injection was done at this point per protocol. The repair was checked in maximum flexion. We then lightly irrigated the subcutaneous tissue and closed with interrupted 2-0 and 3-0 Vicryl Plus. Subcuticular 4-0 Monocryl was placed followed by Kathe Moreno per protocol. The patient was then transferred to their hospital bed and sent to the post anesthesia recovery room in stable condition. They tolerated the procedure well. Sponge, instrument, and needle count were correct. CC: Kameron Mcbride MD [facility]
[2016-03-11] MEDS ORDERED: BISACODYL 10 MG SUP PR PRN (14:16)
--- NOTE | 2016-03-12 11:46 | DS ---
Christiano BACK [id number] : 1935 DATE OF ADMISSION: March 08, 2016 DATE OF DISCHARGE: March 10, 2016 DISCHARGE DIAGNOSES: Right knee medial compartment degenerative joint disease. HOSPITAL PROCEDURES: Right unicompartmental arthroplasty medial side. SURGEON: Carlos Paredes M.D. BRIEF HISTORY: Patient is an 80-year-old male with both clinical and radiographic evidence of advanced DJD of the medial compartment of his right knee. For the full history please see the chart note. BRIEF HOSPITAL COURSE: Patient was admitted on March 08, 2016. Dr. Carlos Paredes performed a right unicompartmental knee arthroplasty. They were moved to the recovery room in stable condition. They were given 4 doses of antibiotic for empiric coverage. DVT prophylaxis consisted of aspirin 325 mg, pneumatic compression, mobility and PT. PT was instituted postop day 1 with right total knee arthroplasty protocol, weightbearing as tolerated. Their incision site remained benign, their vital signs remained stable and they remained neurally and vascularly intact through the duration of the stay. They were discharged home on postop day, 2 to continue their outpatient PT at [facility] to continue his rehabilitation with right total knee arthroplasty protocol, weightbearing as tolerated. Isac Muñiz M.D. consulted to manage perioperative medical comorbidities. For this consultation, please see the chart note. DISCHARGE INSTRUCTIONS: 1. Keep the wound site clean. May shower with Aquacel dressing intact. Call office with any questions or concerns and f/u for your dressing change as scheduled 1 week postop. 2. Continue the use of HAYDE hose bilaterally. 3. Cooling unit 3-4 times daily for 30 minutes duration. 4. Outpatient PT at [facility] for right total knee arthroplasty protocol, weightbearing as tolerated. MEDICATIONS: 1. Patient is to resume normal preop medications. 2. Anti-coagulation will be with aspirin 325 mg daily for six weeks. 3. Pain management will be with Oxycodone, 5mg 1-2 every 4 hours prn for breakthrough pain. 4. Patient was also advised on utilization of a multi-vitamin with mineral daily as well as Vitamin C, 500mg daily for 1 month. 5. Patient encouraged to take an iron supplement in the form of ferrous sulfate, 325mg daily for 4 weeks. 6. Colace, 100mg, b.i.d. until regular bowel movement. FOLLOW-UP: Please return to the clinic as scheduled for your first scheduled postop check. Prior to that point in time please call with any questions or concerns. Job [id number] CC: Fidelity Jaime Mcbride M.D. [facility]
== END 2016-03-10 13:00 | DRG 470 ==
LOC: OR 09:15 → MS 17:18
PROVIDERS: ADMIT Orthopaedic Surgery; ATTEND Orthopaedic Surgery
PROC: 0SRC0L9 Replacement of Right Knee Joint with Medial Unicondylar Synthetic Substitute, Cemented, Open Approach (ICD-10-PCS; principal; 2016-03-08)
DX: M17.11 Unilateral primary osteoarthritis, right knee (principal); R09.02 Hypoxemia; I25.10 Atherosclerotic heart disease of native coronary artery without angina pectoris; F34.1 Dysthymic disorder; G47.33 Obstructive sleep apnea (adult) (pediatric); G71.3 Mitochondrial myopathy, not elsewhere classified; K21.9 Gastro-esophageal reflux disease without esophagitis; I12.9 Hypertensive chronic kidney disease with stage 1 through stage 4 chronic kidney disease, or unspecified chronic kidney disease; N18.3 Chronic kidney disease, stage 3 (moderate); G62.9 Polyneuropathy, unspecified; T50.905A Adverse effect of unspecified drugs, medicaments and biological substances, initial encounter; Y92.239 Unspecified place in hospital as the place of occurrence of the external cause; Z87.891 Personal history of nicotine dependence; Z88.8 Allergy status to other drugs, medicaments and biological substances; Z88.6 Allergy status to analgesic agent; Z22.321 Carrier or suspected carrier of Methicillin susceptible Staphylococcus aureus